=== PATIENT | male | born 1950 | race Caucasian/White ===

== ENCOUNTER 2020-05-12 12:50 | Emergency (ER) | payer OTHER ==
[~2020-05-12] VITALS: Ht 175.3 cm; Wt 64.0 kg
[2020-05-12 13:05] VITALS: BP 153/87
--- NOTE | 2020-05-12 14:06 | NUR ---
CLINICAL ADVISOR: PT AMBULATORY TO ROOM WITH STEADY GAIT FROM [facility] AT THIS TIME
--- NOTE | 2020-05-12 14:50 | NUR ---
first contact with patient, pt here for redness on face he is concerned is a rash. Pt reports he has alot of pain and is itchy. Pt reports started after mask use. Pt denies allergies. Pt reports he took a benadryl at home to help with the discomfort. no airway compromis and pt is breathing unlabored and equally.
[2020-05-12] MEDS ORDERED: LUTE20CA2 PO (15:08)
[2020-05-12] MEDS ORDERED: UBIQ100C3 PO (15:08)
[2020-05-12] MEDS ORDERED: LOSA50TA14 PO (15:08)
[2020-05-12] MEDS ORDERED: LEVO5TAB29 PO (15:08)
[2020-05-12] MEDS ORDERED: OMEG1CAP34 PO (15:08)
[2020-05-12] MEDS ORDERED: VITA200C7 PO (15:08)
[2020-05-12] MEDS ORDERED: AMIO100T4 PO (15:08)
[2020-05-12] MEDS ORDERED: METO25TA35 PO (15:08)
[2020-05-12] MEDS ORDERED: ATOR20TA37 PO (15:08)
--- NOTE | 2020-05-12 15:41 | NUR ---
Patient/Caregiver given discharge instructions and they have confirmed that they understand the instructions. Patient ambulatory with steady gait.
== END 2020-05-12 15:43 | disposition home or self-care (01) ==
LOC: ED 14:11
DX: L71.9 Rosacea, unspecified (principal); Z87.891 Personal history of nicotine dependence
CPT/HCPCS: 99283

== ENCOUNTER → 2020-09-10 | Outpatient (CLI) | payer OTHER, MEDICARE ==
[~2020-09-10] MED LIST: AMIO100T4 PO; ATOR20TA37 PO; LEVO5TAB29 PO; LOSA50TA14 PO; LUTE20CA2 PO; METO25TA35 PO; OMEG1CAP34 PO; UBIQ100C3 PO; VITA200C7 PO
== END | disposition home or self-care (01) ==
LOC: CFH 13:30
PROVIDERS: ATTEND Internal Medicine Cardiovascular Disease
DX: I08.8 Other rheumatic multiple valve diseases (principal); I27.20 Pulmonary hypertension, unspecified; I42.9 Cardiomyopathy, unspecified; Z95.0 Presence of cardiac pacemaker
CPT/HCPCS: 93306

== ENCOUNTER → 2020-10-03 | Outpatient (CLI) | payer OTHER, MEDICARE ==
[~2020-10-03] MED LIST changes: +REGADENOSON 0.4 MG/5 ML SYRINGE ONE
== END | disposition home or self-care (01) ==
LOC: CFH 08:20
PROVIDERS: ATTEND Internal Medicine Cardiovascular Disease
DX: I44.7 Left bundle-branch block, unspecified (principal)
CPT/HCPCS: 78452; 93017; A9502; J2785

== ENCOUNTER → 2020-11-11 | Outpatient (CLI) | payer OTHER, MEDICARE ==
[~2020-11-11] MED LIST changes: -REGADENOSON 0.4 MG/5 ML SYRINGE ONE
== END | disposition home or self-care (01) ==
LOC: RAD 11:02
PROVIDERS: ATTEND Internal Medicine Cardiovascular Disease
DX: I42.9 Cardiomyopathy, unspecified (principal)
CPT/HCPCS: 78472; A9560; J1642

== ENCOUNTER → 2020-12-15 | Outpatient (CLI) | payer OTHER, MEDICARE ==
[~2020-12-15] MED LIST changes: +OMNIPAQUE 350 MG/ML, 100ML BOTTLE ONE; +UBIQ100C2 PO; -UBIQ100C3 PO
== END | disposition home or self-care (01) ==
LOC: CFH 12:08
PROVIDERS: ATTEND Family Medicine
DX: K80.20 Calculus of gallbladder without cholecystitis without obstruction (principal); K76.89 Other specified diseases of liver
CPT/HCPCS: 74175; Q9967

== ENCOUNTER 2021-01-26 14:54 | Outpatient (CLI) | payer OTHER, MEDICARE ==
[~2021-01-26 14:54] MED LIST changes: -OMNIPAQUE 350 MG/ML, 100ML BOTTLE ONE
[2021-01-26] MEDS ORDERED: OMNIPAQUE 350 MG/ML, 100ML BOTTLE ONE (17:40)
== END 2021-01-26 23:59 | disposition home or self-care (01) ==
LOC: CFH 14:54
PROVIDERS: ATTEND Registered Nurse
DX: I71.2 Thoracic aortic aneurysm, without rupture (principal)
CPT/HCPCS: 71275; 82565; Q9967

== ENCOUNTER 2021-04-28 07:44 | Outpatient (CLI) | payer OTHER, MEDICARE | END 2021-04-28 23:59 | disposition home or self-care (01) | LOC: CVU 07:44 → EDSTATUS 08:00 → CVU 23:59 | PROVIDERS: ATTEND Anesthesiology | DX: I08.8 Other rheumatic multiple valve diseases (principal); I42.9 Cardiomyopathy, unspecified | CPT/HCPCS: 93306; 93356 ==